=== PATIENT | female | born 1980 | race Two or more races ===

== ENCOUNTER 2024-06-08 11:11 | Emergency (ER) | payer OTHER ==
[~2024-06-08] VITALS: Ht 165.1 cm; Wt 59.0 kg
== END 2024-06-08 16:35 | disposition home or self-care (01) ==
LOC: ER 11:12
DX: G89.11 Acute pain due to trauma (principal); M25.571 Pain in right ankle and joints of right foot; M79.671 Pain in right foot; E83.118 Other hemochromatosis; Z88.2 Allergy status to sulfonamides; Z88.6 Allergy status to analgesic agent